=== PATIENT | male | born 1960 | race Caucasian/White ===

== ENCOUNTER 2023-08-05 18:16 | Emergency (ER) | payer BC, SELFPAY ==
[2023-08-05 18:31] VITALS: BP 173/73; PULSE 91; RESP 16; TEMP 36.4; O2SAT 97
--- NOTE | 2023-08-05 18:45 | ECG_ITS ---
Measurements Intervals [place] Rate: 84 P: 47 AL: 132 QRS: 9 QRSD: 110 T: 27 QT: 351 QTc: 417 Interpretive Statements SINUS RHYTHM NORMAL ELECTROCARDIOGRAM NO PREVIOUS ECG AVAILABLE FOR COMPARISON Electronically Signed On 08-06-2023 7:23:05 SITE SUPERINTENDENT by Emmanuel Allen M.D.
--- NOTE | 2023-08-05 18:59 | ED.GENADULT ---
HPI - General Adult General Chief complaint: Nausea/Vomiting/Diarrhea Stated complaint: Indigestion Source: patient Mode of arrival: ambulatory Limitations: no limitations History of Present Illness HPI narrative: 62-year-old male preesnts to clinic with complaints I feel like something is stuck; I feel like I just need to burp since this AM. patient reports he has been sipping on water and Coke with little relief. Patient reports that he drinks approximately 10 beers yesterday. Patient reports history of hypertension and carotid buildup in the past. Patient denies shortness of breath, fever, body aches, chills, nausea, vomiting or diarrhea. Patient has history of GERD. Patient has not tried taking any [id number] medications for his symptoms. Onset (ago): hour(s) (11) Location: abdomen Relieving factors: none Exacerbating factors: none Related Data Home Medications Medication Instructions Recorded Confirmed amlodipine 5 mg tablet 5 mg PO DAILY 08/05/23 08/05/23 hydrochlorothiazide 25 mg tablet 25 mg PO DAILY 08/05/23 08/05/23 losartan 100 mg tablet 100 mg PO DAILY 08/05/23 08/05/23 sildenafil (pulm.hypertension) 20 20 mg PO TID 08/05/23 08/05/23 mg tablet simvastatin 10 mg tablet 10 mg PO DAILY 08/05/23 08/05/23 Allergies Allergy/AdvReac Type Severity Reaction Status Date / Time No Known Allergies Allergy Verified 08/05/23 18:23 Review of Systems Constitutional: Constitutional: Denies chills, Denies fatigue, Denies fever(s) and Denies weakness ENT: Denies vertigo, Denies dizziness and Denies nasal congestion Cardiovascular: Cardiovascular: Denies chest pain Respiratory: Respiratory: Denies cough, Denies dyspnea and Denies wheezing Gastrointestinal: Gastrointestinal: Reports abdominal pain, Reports bloating, Denies diarrhea, Denies nausea and Denies vomiting Musculoskeletal: Musculoskeletal: Denies arthralgias and Denies joint swelling Integumentary/Breasts: Skin/Breast: Denies erythema and Denies rash Neurologic: Denies dizziness, Denies syncope and Denies headache(s) PMFSH Comments At time of signature, I agree with nursing past medical, surgical, social and family history. There is no relevant family history pertinent to the presenting complaint. Exam Const: General: healthy appearing Nutritional Appearance: well nourished and obese Orientation/consciousness: patient oriented x3 Limitations: no limitations HENMT: Head: normal to inspection Eyes: Conjunctivae: conjunctivae normal Neck: Neck: normal visual inspection Resp: Effort & Inspection: normal respiratory effort and not labored Auscultation: clear to auscultation bilaterally, no crackles, no rales, no rhonchi and no wheezes Cardio: Rate: regular rate Rhythm: regular rhythm Heart sounds: no murmurs GI: Inspection: non-distended GI Palp: Yes Soft to palpation, No Tenderness to palpation present (GI), No Guarding due to palpation present (GI) and No Rigid due to palpation Back/Spine/Pelvis: Back: no CVA tenderness Skin: General skin exam: normal color Rashes: no rashes Neuro: General: patient oriented x3 Speech: normal speech Gait exam (Neuro): Normal gait present Extrem: General: normal to inspection Psych: Affect: normal affect Attitude: cooperative Course Course Level of Care: Express Care Visit Vital Signs Vital signs: Vital Signs Temperature 36.4 C L 08/05/23 18:31 Pulse Rate 91 08/05/23 18:31 Respiratory Rate 16 08/05/23 18:31 Blood Pressure 173/73 H 08/05/23 18:31 Pulse Oximetry 97 08/05/23 18:31 Oxygen Delivery Room Air 08/05/23 18:31 Temperature 36.4 C L 08/05/23 18:31 Pulse Rate 91 08/05/23 18:31 Respiratory Rate 16 08/05/23 18:31 Blood Pressure 173/73 H 08/05/23 18:31 Pulse Oximetry 97 08/05/23 18:31 Oxygen Delivery Room Air 08/05/23 18:31 Transfer Transfered to: Other ([facility]) Transfer rationale: Abdominal pain Accepting ph
== END 2023-08-05 19:00 | disposition short-term general hospital (02) ==
PROVIDERS: Emergency Provider Nurse Practitioner Family; PCP Family Medicine
DX: R10.10 Upper abdominal pain, unspecified (principal); E78.00 Pure hypercholesterolemia, unspecified; I10 Essential (primary) hypertension; K21.9 Gastro-esophageal reflux disease without esophagitis; M19.90 Unspecified osteoarthritis, unspecified site
CPT/HCPCS: 93005; 99203; G0463